=== PATIENT | female | born 1940 | race Caucasian/White ===

== ENCOUNTER → 2016-08-29 | Outpatient (CLI) | payer MEDICARE ==
--- NOTE | 2016-08-29 12:54 | RAD ---
Chest, 2 views, 08/29/2016: History: Worsening shortness of breath No previous chest radiographs are available at this time for comparison purposes. There has been a previous median sternotomy. The heart size is normal. There is calcific plaquing of the aorta. The pulmonary vascularity is within normal limits. There is a 3-4 cm opacity in the lateral aspect of the right apex. Its margins are irregular. The lungs are otherwise clear. There is no evidence of pleural fluid. A surgical plate and screws is evident in the lower cervical spine. IMPRESSION: Right apical opacity with diagnostic considerations including a neoplasm, a focus of pneumonia or confluent scarring. CT scanning, if not already performed elsewhere should be considered for further evaluation.
== END | disposition home or self-care (01) ==
LOC: DXRAD 12:30
PROVIDERS: ATTEND Internal Medicine Pulmonary Disease
DX: J18.9 Pneumonia, unspecified organism (principal); R91.8 Other nonspecific abnormal finding of lung field; R06.02 Shortness of breath
CPT/HCPCS: 71020

== ENCOUNTER → 2016-09-05 | Outpatient (CLI) | payer MEDICARE ==
--- NOTE | 2016-09-05 12:14 | RAD ---
Indication abnormal chest x-ray. Axial images through the chest were obtained. No prior CT imaging of the chest is available. Note is made of a plain film examination 08/29/2016 referencing an abnormality in the right upper lobe Imaging through the upper abdomen shows no acute finding. There is moderate enlargement of the left adrenal gland measuring approximately 1.7 cm. This probably represents either hyperplasia or an adenoma. The right adrenal gland appears normal. There is a 1 cm low-density mass in the right lobe of the liver likely reflecting an incidental cyst. A definite significant finding in the upper abdomen is seen. There is moderate coronary artery calcification. Corresponding to the finding on plain film is a 3 cm soft tissue mass in the right upper lobe with spiculated margins. 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 There are underlying emphysematous changes. An additional parenchymal abnormality is not seen. There are a few mediastinal lymph nodes. These are probably incidental. Definite pathologic mediastinal adenopathy is not seen. Significant hilar adenopathy is not seen. There is a partially calcified nodule associated with the right lobe of the thyroid. This could be further evaluated with ultrasound if clinically warranted. 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 Mild mediastinal adenopathy likely incidental. Modest enlargement of the left adrenal gland likely reflecting hyperplasia or an adenoma. The left adrenal gland is not fully characterized on this exam. Right thyroid nodule Mass in the right lower liver most compatible with a cyst PQRS Compliance Statement: One or more of the following individualized dose reduction techniques were utilized for this examination: 1. Automated exposure control 2. Adjustment of the mA and/or kV according to patient size 3. Use of iterative reconstruction technique
== END | disposition home or self-care (01) ==
LOC: CT 11:02
PROVIDERS: ATTEND Internal Medicine Pulmonary Disease
DX: E04.1 Nontoxic single thyroid nodule (principal); R91.8 Other nonspecific abnormal finding of lung field
CPT/HCPCS: 71250

== ENCOUNTER → 2018-11-23 | Outpatient (CLI) | payer MEDICARE, OTHER ==
--- NOTE | 2018-11-23 14:59 | CARD ---
MR#: [id number] Date of Study: 11/23/2018 Ordering Physician: BETTIE CRISOSTOMO, Referring Physician: BETTIE CRISOSTOMO, Tech: Karen Engel SENDY APPROVED REPORT EXAM: Two-dimensional and M-mode echocardiogram with Doppler and color Doppler. Other Information Quality : Fair INDICATION Cardiac Disease: CAD Surgery/Intervention CABG: Date: 2005 RISK FACTORS Smoking 2D DIMENSIONS Left Atrium(2D)3.4 (1.6-4.0cm)IVSd1.0 (0.7-1.1cm) Aortic Root(2D)2.5 (2.0-3.7cm)LVDd4.7 (3.9-5.9cm) LVOT Diameter2.0 (1.8-2.4cm)PWd1.0 (0.7-1.1cm) LVDs3.2 (2.5-4.0cm)FS (%) 32.1 % SV62.5 mlLVEF(%)60.2 (>50%) Aortic Valve AoV Peak Adeel.103.6cm/sAoV VTI21.8cm AO Peak GR.4.3mmHgLVOT Peak Adeel.103.0cm/s LVOT VTI 22.50cmAO Mean GR.2mmHg POONAM (VMAX)3.63zh8NOR (VTI)3.24cm2 Mitral Valve MV E Drrvfajk64.6cm/sMV DECEL [id number] MV A Cxuqqzqb89.8cm/sE/A Ratio0.7 Pulmonary Vein S1 Wmonicjz80.2cm/sD2 Mtzprtmv63.1cm/s LEFT VENTRICLE The left ventricle is normal size. There is borderline concentric left ventricular hypertrophy. The l eft ventricular systolic function is normal and the ejection fraction is within normal range. The Eje ction Fraction is 60-65%. There is normal LV segmental wall motion. Transmitral Doppler flow pattern is Grade I-abnormal relaxation pattern. RIGHT VENTRICLE The right ventricle is normal size. The right ventricular systolic function is normal. ATRIA The left atrium size is normal. The right atrium size is normal. The interatrial septum is intact wit h no evidence for an atrial septal defect or patent foramen ovale as noted on 2-D or Doppler imaging. AORTIC VALVE The aortic valve is calcified but opens well. Doppler and Color Flow revealed no significant aortic r egurgitation. There is no significant aortic valvular stenosis. MITRAL VALVE The mitral valve is calcified but opens well. There is no evidence of mitral valve prolapse. There is no mitral valve stenosis. Doppler and Color-flow revealed trace mitral regurgitation. TRICUSPID VALVE The tricuspid valve is normal in structure and function. Doppler and Color Flow revealed no tricuspid valve regurgitation noted. There is no tricuspid valve stenosis. PULMONIC VALVE The pulmonic valve is not well visualized. Doppler and Color Flow revealed no pulmonic valvular regur gitation. There is no pulmonic valvular stenosis. GREAT VESSELS The aortic root is normal in size. The ascending aorta is normal in size. The IVC was not visualized. PERICARDIAL EFFUSION There is no evidence of significant pericardial effusion. Critical Notification Critical Value: No <Conclusion> The left ventricle is normal size. The left ventricular systolic function is normal and the ejection fraction is within normal range. The Ejection Fraction is 60-65%. There is borderline concentric left ventricular hypertrophy. There is no significant aortic valvular stenosis. Doppler and Color Flow revealed no significant aortic regurgitation. Doppler and Color-flow revealed trace mitral regurgitation. Doppler and Color Flow revealed no tricuspid valve regurgitation noted. Signed by : Alex Ochoa MD Electronically Approved : 11/23/2018 14:58:53
== END | disposition home or self-care (01) ==
LOC: ECHO 13:36
PROVIDERS: ATTEND Internal Medicine Cardiovascular Disease
DX: I25.10 Atherosclerotic heart disease of native coronary artery without angina pectoris (principal); F17.200 Nicotine dependence, unspecified, uncomplicated; I51.7 Cardiomegaly; I70.0 Atherosclerosis of aorta; R00.8 Other abnormalities of heart beat
CPT/HCPCS: 93306